=== PATIENT | female | born 2000 | race Caucasian/White ===

== ENCOUNTER 2022-08-05 08:13 | Inpatient (IN) | payer MEDICAID ==
[~2022-08-05] VITALS: Ht 162.6 cm; Wt 74.4 kg
[2022-08-05] MEDS ORDERED: NALOXONE HCL 0.4 MG/ML 1ML VIAL IM PRN (09:00)
[2022-08-05] MEDS ORDERED: OXYTOCIN 30 UNITS/500ML NS PMX 500 ML IV SCH (09:00)
[2022-08-05] MEDS ORDERED: BUTORPHANOL TARTRATE 2 MG/ML VIAL IV PRN (09:00)
[2022-08-05] MEDS ORDERED: METHYLERGONOVINE MALEATE 0.2 MG/ML IM PRN (09:00)
[2022-08-05] MEDS ORDERED: PENICILLIN G POTASSIUM 5 MMU in DEXT 5% WATER 100 ML IV SCH (10:00)
[2022-08-05 10:04] LABS: BASOPHILS % 0.5 % (0.0-2.0); HEMATOCRIT. 35.3 % (36.0-48.0); HEMOGLOBIN. 11.4 g/dL (12.0-16.0); LYMPHOCYTES % 21.5 % (20.0-50.0); MEAN CORPUSCULAR HEMOGLOBIN 28.2 pg (28.0-32.0); MEAN CORPUSCULAR VOLUME 87.7 fL (81.0-99.0); MONOCYTES % 6.3 % (2.0-8.0); NEUTROPHILS % 66.7 % (40.0-76.0); PLATELET 270 x1000/uL (130-400); RED BLOOD CELL COUNT 4.02 mill/uL (4.2-5.4); RED CELL DISTRIBUTION WIDTH 18.2 % (11.6-14.6)
[2022-08-05 10:19] LABS: INR 0.9; PARTIAL THROMBOPLASTIN TIME 27.1 sec (23.4-31.0); PROTHROMBIN TIME 9.7 sec (9.6-11.0)
[2022-08-05 10:24] LABS: CLARITY URINE CLEAR (CLEAR); COLOR URINE YELLOW (YELLOW); KETONES URINE TRACE (NEGATIVE); LEUKOCYTE ESTERASE URINE NEGATIVE (NEGATIVE); NITRITE URINE NEGATIVE (NEGATIVE); OCCULT BLOOD URINE NEGATIVE (NEGATIVE); PROTEIN URINE TRACE (NEGATIVE); SPECIFIC GRAVITY URINE 1.021 (1.005-1.030)
[2022-08-05 10:37] LABS: *AMPHETAMINES SCREEN URINE NEGATIVE (NEGATIVE); *BARBITURATES SCREEN URINE NEGATIVE (NEGATIVE); *BENZODIAZEPINES SCREEN URINE NEGATIVE (NEGATIVE); *COCAINE SCREEN URINE NEGATIVE (NEGATIVE); CANNABINOID URINE SCREEN NEGATIVE (NEGATIVE); METHADONE URINE SCREEN NEGATIVE (NEGATIVE); OPIATES URINE SCREEN NEGATIVE (NEGATIVE); PHENCYCLIDINE URINE SCREEN NEGATIVE (NEGATIVE)
[2022-08-05] MEDS: LACTATED RINGERS 1,000 ML IV SCH ×3 (10:44→17:17)
[2022-08-05] MEDS: MISOPROSTOL 100MCG TABLET VG PRN ×3 (11:01→19:58)
[2022-08-05 14:25] LABS: HEPATITIS B SURFACE ANTIGEN NEGATIVE
[2022-08-05] MEDS: PENICILLIN G POTASSIUM 2.5 MMU in DEXTROSE 5% WATER 50 ML IV SCH ×2 (14:55→18:39)
[2022-08-05] MEDS ORDERED: ROPIVACAINE HCL/PF EPIDURAL 200 ML EPI SCH (17:15)
[2022-08-06] MEDS: PENICILLIN G POTASSIUM 2.5 MMU in DEXTROSE 5% WATER 50 ML IV SCH ×3 (05:49→16:22)
[2022-08-06] MEDS: LACTATED RINGERS 1,000 ML IV SCH ×2 (05:50→15:12)
[2022-08-06 09:07] LABS: HIV SCREEN 4G Non Reactive (Non Reactive)
[2022-08-06] MEDS: MISOPROSTOL 100MCG TABLET VG PRN (13:16)
[2022-08-06] MEDS ORDERED: ROPIVACAINE HCL/PF EPIDURAL 0 ML EPI ONE (19:55)
[2022-08-06] MEDS ORDERED: IBUPROFEN 400MG TABLET PO PRN (20:30)
[2022-08-06] MEDS ORDERED: RHO(D) IMMUNE GLOBULIN 300 MCG/SYR IM PRN (20:30)
[2022-08-06 22:25] VITALS: BP 106/60
[2022-08-07 04:00] VITALS: BP 97/63
[2022-08-07 06:44] LABS: BASOPHILS % 0.4 % (0.0-2.0); EOSINOPHILS % 1.9 % (0.0-5.0); HEMATOCRIT. 30.9 % (36.0-48.0); LYMPHOCYTES % 16.9 % (20.0-50.0); MEAN CORPUSCULAR HEMOGLOBIN 28.3 pg (28.0-32.0); MEAN CORPUSCULAR VOLUME 87.3 fL (81.0-99.0); MONOCYTES % 5.6 % (2.0-8.0); NEUTROPHILS % 75.2 % (40.0-76.0); PLATELET 233 x1000/uL (130-400); RED BLOOD CELL COUNT 3.53 mill/uL (4.2-5.4)
[2022-08-07 08:00] VITALS: BP 99/59
[2022-08-07] MEDS: PRENATAL VIT/FE FUMARATE/FA TABLET PO SCH (09:26)
[2022-08-07] MEDS: FERROUS SULFATE 325MG TABLET PO SCH ×2 (09:26→13:01)
[2022-08-07] MEDS: IBUPROFEN 800MG TABLET PO PRN (13:00)
[2022-08-07 15:06] LABS: HIV SCREEN 4G Non Reactive (Non Reactive)
[2022-08-07 16:00] VITALS: BP 107/66
[2022-08-07 19:30] VITALS: BP 105/62
[2022-08-08 04:00] VITALS: BP 102/53
[2022-08-08 08:15] VITALS: BP 98/62
[2022-08-08] MEDS: IBUPROFEN 800MG TABLET PO PRN (09:13)
[2022-08-08] MEDS: FERROUS SULFATE 325MG TABLET PO SCH (09:13)
[2022-08-08] MEDS: PRENATAL VIT/FE FUMARATE/FA TABLET PO SCH (09:13)
== END 2022-08-08 16:42 | disposition home or self-care (01) | DRG 560 ==
LOC: 8 EST LDRP 08:13 → OBSVTOIN 08:13 → 8EST 08-06 21:50
PROVIDERS: ADMIT Obstetrics & Gynecology; ATTEND Obstetrics & Gynecology
PROC: 10E0XZZ Delivery of Products of Conception, External Approach (ICD-10-PCS; principal; 2022-08-06)
DX: O80 Encounter for full-term uncomplicated delivery (principal); Z37.0 Single live birth; Z20.822 Contact with and (suspected) exposure to COVID-19; Z3A.40 40 weeks gestation of pregnancy
CPT/HCPCS: 36415; 76805; 76818; 80305; 81003; 85025; 86592; 86703; 86762; 86850; 86900; 87340; 87389; 87426; 99281; G0378; J2540; J2795; J7060; J7120; A4315; J2590